=== PATIENT | male | born 1970 | race Caucasian/White ===

== ENCOUNTER 2016-05-11 17:32 | Emergency (ER) | payer SELFPAY ==
[~2016-05-11] VITALS: Ht 182.9 cm; Wt 95.0 kg
[2016-05-11 17:34] VITALS: BP 136/66; PULSE 89; RESP 17; TEMP 98.2; O2SAT 96
[2016-05-12] MEDS ORDERED: METO50TA PO (02:35)
[2016-05-12] MEDS ORDERED: LORA-475 PO (02:35)
[2016-05-12] MEDS ORDERED: LISI10TA3 PO (02:35)
[2016-05-12] MEDS ORDERED: SODIUM CHLOR 0.9% 1000 ML INJ 1,000 ML IV SCH (02:39)
[2016-05-12] MEDS ORDERED: ONDANSETRON HCL 4 MG/2 ML VIAL IVP ONE (02:45)
[2016-05-12] MEDS ORDERED: MORPHINE SULFATE 8 MG/ML INJ IV PUSH ONE (02:45)
[2016-05-12] MEDS ORDERED: SODIUM CHLORIDE 0.9% FLUSH 5 ML FLUSH IVF PRN (02:45)
--- NOTE | 2016-05-12 02:59 | PD ---
HPI Chief Complaint: Abdominal Pain Time Seen by Provider: 02:25 Travel History International Travel<30 days: No Contact w/Intl Traveler<30days: No Traveled to known affect area: No History of Present Illness HPI 46-year-old male arrives with abdominal pain and vomiting. Any oral intake which is now limited to water causes him to vomit. He feels a vague pain radiating from his throat into the epigastric abdomen. Duration has been about 10 hours. Onset was gradual. Generalized abdominal pain is constant. He's had no fever or diarrhea. He has been passing gas normally. He's had no unusual/spoiled/contaminated foods. No similar episodes have occurred. No prior abdominopelvic surgery has occurred [facility] Past Medical History Cardiovascular Problems: Yes (HTN) Hypertension: Yes ?: Not Past Surgical History Surgical History: No Previous Surgery Social History Alcohol Use: No Tobacco Use: Yes (pack a day smoker ) Allergies-Medications (Allergen,Severity, Reaction): Coded Allergies: No Known Allergies (Unverified , 05/11/16) Reported Meds & Prescriptions Reported Meds & Active Scripts Active Reported Ativan (Lorazepam) 2 Mg Tab 2 Mg PO DAILY PRN Metoprolol Tartrate 50 Mg Tab 50 Mg PO DAILY Lisinopril 10 Mg Tab 10 Mg PO DAILY Review of Systems Except as stated in HPI: all other systems reviewed are Neg Physical Exam Narrative GENERAL: 46-year-old male well-nourished full develop no acute distress SKIN: Warm and dry. HEAD: Atraumatic. Normocephalic. EYES: Pupils equal and round. No scleral icterus. No injection or drainage. ENT: No nasal bleeding or discharge. Mucous membranes pink and moist. NECK: Trachea midline. No JVD. CARDIOVASCULAR: Regular rate and rhythm. No murmur appreciated. RESPIRATORY: No accessory muscle use. Clear to auscultation. Breath sounds equal bilaterally. GASTROINTESTINAL: Soft. Generalized tenderness to mild palpation. MUSCULOSKELETAL: No obvious deformities. No clubbing. No cyanosis. No edema. NEUROLOGICAL: Awake and alert. No obvious cranial nerve deficits. Motor grossly within normal limits. Normal speech. PSYCHIATRIC: Appropriate mood and affect; insight and judgment normal. Data Data Last Documented VS Vital Signs Date Time Temp Pulse Resp B/P Pulse Ox O2 Delivery O2 Flow Rate FiO2 05/11/16 17:34 98.2 89 17 136/66 96 Orders Complete Blood Count With Diff (05/12/16 02:39) Comprehensive Metabolic Panel (05/12/16 02:39) Lipase (05/12/16 02:39) Urinalysis - C+S If Indicated (05/12/16 02:39) Ct Abd/Pel W Iv Contrast(Rout) (05/12/16 02:39) Iv Access Insert/Monitor (05/12/16 02:39) Ecg Monitoring (05/12/16 02:39) Oximetry (05/12/16 02:39) Ondansetron Inj (Zofran Inj) (05/12/16 02:45) Sodium Chlor 0.9% 1000 Ml Inj (Ns 1000 M (05/12/16 02:39) Sodium Chloride 0.9% Flush (Ns Flush) (05/12/16 02:45) Morphine Inj (Morphine Inj) (05/12/16 02:45) Iohexol 350 Inj (Omnipaque 350 Inj) (05/12/16 04:38) Labs Laboratory Tests Test 05/12/16 03:00 White Blood Count 7.1 TH/MM3 Red Blood Count 5.26 MIL/MM3 Hemoglobin 14.7 GM/DL Hematocrit 42.7 % Mean Corpuscular Volume 81.3 FL Mean Corpuscular Hemoglobin 27.9 PG Mean Corpuscular Hemoglobin 34.3 % Concent Red Cell Distribution Width 14.0 % Platelet Count 306 TH/MM3 Mean Platelet Volume 8.4 FL Neutrophils (%) (Auto) 54.4 % Lymphocytes (%) (Auto) 33.5 % Monocytes (%) (Auto) 9.3 % Eosinophils (%) (Auto) 1.6 % Basophils (%) (Auto) 1.2 % Neutrophils # (Auto) 3.9 TH/MM3 Lymphocytes # (Auto) 2.4 TH/MM3 Monocytes # (Auto) 0.7 TH/MM3 Eosinophils # (Auto) 0.1 TH/MM3 Basophils # (Auto) 0.1 TH/MM3 CBC Comment DIFF FINAL Differential Comment Urine Color YELLOW Urine Turbidity CLEAR Urine pH 6.0 Urine Specific Aragon 1.029 Urine Protein NEG mg/dL Urine Glucose (UA) NEG mg/dL Urine Ketones NEG mg/dL Urine Occult Blood NEG Urine Nitrite NEG Urine Bilirubin NEG Urine Urobilinogen LESS THAN 2.0 MG/DL Urine Leukocyte Esterase NEG Urine RBC LESS THAN 1 /hpf Urine Mucus FEW /lpf Microscopic Urinalysis Comment CULT NOT INDICATED Sodium Level 139 MEQ/L Potassium Level 3.9 MEQ/L Chloride Level 106 MEQ/L Carbon Dioxide Level 27.0 MEQ/L Anion Gap 6 MEQ/L Blood Urea Nitrogen 21 MG/DL Creatinine 1.25 MG/DL Estimat Glomerular Filtration 63 ML/MIN Rate Random Glucose 85 MG/DL Calcium Level 8.9 MG/DL Total Bilirubin 0.4 MG/DL Aspartate Amino Transf 60 U/L (AST/SGOT) Alanine Aminotransferase 70 U/L (ALT/SGPT) Alkaline Phosphatase 64 U/L Total Protein 7.6 GM/DL Albumin 3.7 GM/DL Lipase 168 U/L [facility] Medical Decision Making Medical Screen Exam Complete: Yes Emergency Medical Condition: Yes Differential Diagnosis Constipation, Gastritis, Acute Cholecystitis, Biliary Colic, Pancreatitis, XAVIER , Hepatitis, Bowel Obstruction, Cystitis, Mesenteric Ischemia, AAA, Appendicitis , Renal Stone/Hydronephrosis, GERD, perforated viscous Narrative Course CBC & BMP Diagram 05/12/16 03:00 AST 60 LFTs WNL otherwise Lipase normal CT ab/pel: no acute disease The patient is resting comfortably and feels better, is alert and in no distress. The patients results and examination findings were discussed. The repeat examination is unremarkable and benign. The history, exam, diagnostic testing, and current condition do not suggest any significant pathology to warrant further testing, continued ED treatment, admission, or surgical evaluation at this point. The vital signs have been stable. The patient does not have uncontrollable pain, intractable vomiting, or other significant symptoms. The patient's condition is stable and appropriate for discharge. The patient will pursue further outpatient evaluation with a primary care physician or other designated or consulting physician as indicated in the discharge instructions. The patient expressed understanding and was agreeable with this plan. Diagnosis Primary Impression: Nausea & vomiting Qualified Code: R11.2 - Nausea and vomiting, intractability of vomiting not specified, unspecified vomiting type Additional Impression: Abdominal pain Qualified Code: R10.9 - Abdominal pain, unspecified location Referrals: Rangel Villagomez MD 2 days Additional Instructions: You have a choice when it comes to health care, and we are glad that you chose [facility]. Hopefully, we have met your expectations on today's visit. You are welcome to return to [facility] at any time, as we are committed to meeting the health care needs of our community. Med/Other Pt SpecificInfo: No Change to Meds Disposition: 01 DISCHARGE HOME Condition: Seng Piña MD May 12, 2016 02:59
[2016-05-12 03:07] LABS: AUTOMATED NEUTROPHIL # 3.9 TH/MM3 (1.8-7.7); BASOPHIL # 0.1 TH/MM3 (0-0.2); BASOPHIL % 1.2 % (0.0-2.0); EOSINOPHIL # 0.1 TH/MM3 (0-0.4); EOSINOPHIL % 1.6 % (0.0-4.0); HEMATOCRIT 42.7 % (39.0-51.0); HEMO FLAGS DIFF FINAL; LYMPH % 33.5 % (9.0-44.0); LYMPHOCYTE # 2.4 TH/MM3 (1.0-4.8); MEAN CELL VOLUME 81.3 FL (80.0-100.0); MEAN CORPUSCULAR HEMOGLOBIN 27.9 PG (27.0-34.0); MEAN CORPUSCULAR HGB CONC 34.3 % (32.0-36.0); MONO % 9.3 % (0.0-8.0); NEUT % 54.4 % (16.0-70.0); PLATELET COUNT 306 TH/MM3 (150-450); RED BLOOD COUNT 5.26 MIL/MM3 (4.50-5.90); WHITE BLOOD COUNT 7.1 TH/MM3 (4.0-11.0)
[2016-05-12 04:13] LABS: ALT (GPT) 70 U/L (12-78); ANION GAP 6 MEQ/L (5-15); AST (GOT) 60 U/L (15-37); BLOOD UREA NITROGEN 21 MG/DL (7-18); CHLORIDE 106 MEQ/L (98-107); GLOMERULAR FILTRATION RATE 63 ML/MIN (>89); POTASSIUM 3.9 MEQ/L (3.5-5.1); SODIUM (NA) 139 MEQ/L (136-145)
[2016-05-12 04:15] LABS: ALKALINE PHOSPHATASE 64 U/L (45-117); TOTAL BILIRUBIN ADULT 0.4 MG/DL (0.2-1.0)
[2016-05-12 04:16] LABS: BLOOD, URINE NEG (NEG); COMMENT (UR) CULT NOT INDICATED; CULTURE IF INDICATED CULT NOT INDICATED; GLUCOSE,URINE NEG (NEG); KETONE, URINE NEG (NEG); MUCUS URINE FEW /lpf (OCC); NITRITE,URINE NEG (NEG); URINE COLOR YELLOW (YELLW/STRAW)
[2016-05-12] MEDS ORDERED: IOHEXOL 350 MG/ML 10 ML VIAL (for RAD DIAG) IV ONE (04:38)
--- NOTE | 2016-05-12 05:03 | RADRPT ---
EXAM DATE/TIME: 05/12/2016 04:35 [place] COMPARISON: No previous studies available for comparison. INDICATIONS : Nausea and vomiting today. IV CONTRAST: 100 cc Omnipaque 350 (iohexol) IV ORAL CONTRAST: No oral contrast ingested. RADIATION DOSE: 13.54 CTDIvol (mGy) MEDICAL HISTORY : None SURGICAL HISTORY : None. ENCOUNTER: Initial ACUITY: 1 day PAIN SCALE: 1/10 LOCATION: abdomen TECHNIQUE: Volumetric scanning of the abdomen and pelvis was performed. Using automated exposure control and ad justment of the mA and/or kV according to patient size, radiation dose was kept as low as reasonably achievable to obtain optimal diagnostic quality images. FINDINGS: LOWER LUNGS: The visualized lower lungs are clear. LIVER: Homogeneous density without lesion. There is no dilation of the biliary tree. No calcified gallston es. SPLEEN: Normal size without lesion. PANCREAS: Within normal limits. KIDNEYS: Normal in size and shape. There is no mass, stone or hydronephrosis. ADRENAL GLANDS: Within normal limits. VASCULAR: There is no aortic aneurysm. BOWEL/MESENTERY: The stomach, small bowel, and colon demonstrate no acute abnormality. There is no free intraperitone al air or fluid. ABDOMINAL WALL: Within normal limits. RETROPERITONEUM: There is no lymphadenopathy. BLADDER: No wall thickening or mass. REPRODUCTIVE: Within normal limits. INGUINAL: There is no lymphadenopathy or hernia. MUSCULOSKELETAL: Within normal limits for patient age. CONCLUSION: Negative CT abdomen/pelvis with contrast. Adarsh Small MD on May 12, 2016 at 5:00 Board Certified Radiologist. This report was verified electronically.
[2016-05-12] MEDS ORDERED: ZOFR4TAB3 SL (05:20)
[2016-05-12] MEDS ORDERED: LIDOCAINE VISCOUS 2% SOLN 15 ML UDC PO ONE (05:45)
[2016-05-12] MEDS ORDERED: ALUMINUM/MAGNESIUM/SIMETH 30 ML CUP PO ONE (05:45)
== END 2016-05-12 06:14 | disposition home or self-care (01) ==
LOC: NEPC 17:32
DX: R11.2 Nausea with vomiting, unspecified (principal); R10.84 Generalized abdominal pain
CPT/HCPCS: 74177; 80053; 81001; 83690; 85025; 96374; 96375; 99284; J2270; J2405; J7030; Q9967

== ENCOUNTER 2016-05-14 18:20 | Emergency (ER) | payer SELFPAY ==
[~2016-05-14 18:20] MED LIST: LISI10TA3 PO; LORA-475 PO; METO50TA PO; ZOFR4TAB3 SL
[2016-05-14 19:00] VITALS: BP 139/85; PULSE 90; RESP 16; TEMP 97.4; O2SAT 100
[2016-05-14 20:36] LABS: AUTOMATED NEUTROPHIL # 1.7 TH/MM3 (1.8-7.7); BASOPHIL # 0.1 TH/MM3 (0-0.2); BASOPHIL % 1.5 % (0.0-2.0); EOSINOPHIL # 0.1 TH/MM3 (0-0.4); HEMATOCRIT 44.7 % (39.0-51.0); HEMO FLAGS AUTO DIFF; LYMPH % 63.4 % (9.0-44.0); MEAN CELL VOLUME 81.8 FL (80.0-100.0); MEAN CORPUSCULAR HEMOGLOBIN 27.4 PG (27.0-34.0); MEAN CORPUSCULAR HGB CONC 33.5 % (32.0-36.0); MONO % 5.2 % (0.0-8.0); NEUT % 27.9 % (16.0-70.0); PLATELET COUNT 325 TH/MM3 (150-450); RED BLOOD COUNT 5.46 MIL/MM3 (4.50-5.90); RED CELL DISTRIBUTION WIDTH 14.1 % (11.6-17.2); WHITE BLOOD COUNT 6.2 TH/MM3 (4.0-11.0)
--- NOTE | 2016-05-14 20:57 | PD ---
HPI Chief Complaint: Psychiatric Symptoms Time Seen by Provider: 20:51 Travel History International Travel<30 days: No Contact w/Intl Traveler<30days: No Traveled to known affect area: No History of Present Illness HPI Patient is a 46-year-old male with a history of hypertension and depression and anxiety presenting on a Amado act. Per the report the [facility] he made homicidal statements. When police arrived he told them he wanted to use a gun to kill himself if he had one. Patient admits to making statements and states he has been suicidal for 1 day. He denies any attempts. He has been drinking alcohol today and does drink most days. He is to tell me how much he drank. He endorses tobacco use but denies illicit drug use. He denies hallucinations and homicidality. He is on Prozac and Ativan depression and anxiety. He denies any medical complaints at this time. PFS Past Medical History Cardiovascular Problems: Yes (HTN) Hypertension: Yes Social History Alcohol Use: No Tobacco Use: Yes (pack a day smoker ) Allergies-Medications (Allergen,Severity, Reaction): Coded Allergies: No Known Allergies (Unverified , 05/14/16) Reported Meds & Prescriptions Reported Meds & Active Scripts Active Zofran Odt (Ondansetron Odt) 4 Mg Tab 4 Mg SL Q8HR PRN Reported Ativan (Lorazepam) 2 Mg Tab 2 Mg PO DAILY PRN Metoprolol Tartrate 50 Mg Tab 50 Mg PO DAILY Lisinopril 10 Mg Tab 10 Mg PO DAILY Review of Systems ROS Limitations: Intoxication, Uncooperative General / Constitutional: No: Fever Cardiovascular: No: Chest Pain or Discomfort Respiratory: No: Shortness of Breath Gastrointestinal: No: Abdominal Pain Neurologic: No: Weakness, Focal Abnormalities Psychiatric: Positive: Anxiety, Depression, Suicidal Ideations, Substance Abuse (alcohol), No: Homicidal Ideation Physical Exam Narrative GENERAL: Well-developed and well-nourished adult male in no acute distress. Smells faintly of alcohol, not obviously intoxicated. SKIN: Warm and dry. Good turgor without tenting. HEAD: Normocephalic and atraumatic. EYES: PERRL bilaterally, 5mm. EOMI bilaterally. No injection or icterus present. No proptosis. Lids without edema or erythema. ENT: Buccal mucosa pink and moist. Oropharynx free of erythema, tonsillar hypertrophy, masses, swelling, asymmetry and exudates. Uvula midline and airway patent. NECK: Supple, no meningeal signs. Trachea midline, no JVD. No cervical or facial lymphadenopathy. CARDIOVASCULAR: Regular rate and rhythm without murmurs, rubs, clicks or gallops. Radial and posterior tibial pulses 2+ bilaterally. No pedal edema. RESPIRATORY: Clear to auscultation bilaterally with symmetrical rise and fall, no distress or use of accessory muscles. MUSCULOSKELETAL: No gait disturbances. Patient freely moving all four extremities spontaneously. Extremities without clubbing, cyanosis, or edema. No obvious deformities. NEUROLOGIC: CN II-XII grossly intact. Awake and alert. Motor grossly within normal limits. Normal speech. PSYCHIATRIC: Anxious, suicidal. Uncooperative. Frequent comments about grabbing the security guards firearm to harm himself. Data Data Last Documented VS Vital Signs Date Time Temp Pulse Resp B/P Pulse Ox O2 Delivery O2 Flow Rate FiO2 05/14/16 19:00 97.4 90 16 139/85 100 Orders Complete Blood Count With Diff (05/14/16 20:03) Basic Metabolic Panel (Bmp) (05/14/16 20:03) Drug Screen, Random Urine (05/14/16 20:03) Alcohol (Ethanol) (05/14/16 20:03) Salicylates (Aspirin) (05/14/16 20:03) Tylenol (Acetaminophen) (05/14/16 20:03) Psych Screen (05/14/16 20:03) Labs Laboratory Tests Test 05/14/16 20:15 White Blood Count 6.2 TH/MM3 Red Blood Count 5.46 MIL/MM3 Hemoglobin 15.0 GM/DL Hematocrit 44.7 % Mean Corpuscular Volume 81.8 FL Mean Corpuscular Hemoglobin 27.4 PG Mean Corpuscular Hemoglobin 33.5 % Concent Red Cell Distribution Width 14.1 % Platelet Count 325 TH/MM3 Mean Platelet Volume 7.5 FL Neutrophils (%) (Auto) 27.9 % Lymphocytes (%) (Auto) 63.4 % Monocytes (%) (Auto) 5.2 % Eosinophils (%) (Auto) 2.0 % Basophils (%) (Auto) 1.5 % Neutrophils # (Auto) 1.7 TH/MM3 Lymphocytes # (Auto) 4.0 TH/MM3 Monocytes # (Auto) 0.3 TH/MM3 Eosinophils # (Auto) 0.1 TH/MM3 Basophils # (Auto) 0.1 TH/MM3 CBC Comment AUTO DIFF Differential Comment AUTO DIFF CONFIRMED Platelet Estimate NORMAL Platelet Morphology Comment NORMAL Red Cell Morphology Comment NORMAL Sodium Level 141 MEQ/L Potassium Level 3.8 MEQ/L Chloride Level 105 MEQ/L Carbon Dioxide Level 25.2 MEQ/L Anion Gap 11 MEQ/L Blood Urea Nitrogen 7 MG/DL Creatinine 1.16 MG/DL Estimat Glomerular Filtration 68 ML/MIN Rate Random Glucose 110 MG/DL Calcium Level 8.2 MG/DL Salicylates Level 3.4 MG/DL Acetaminophen Level LESS THAN 2.0 MCG/ML Ethyl Alcohol Level 297 MG/DL [facility] Medical Decision Making Medical Screen Exam Complete: Yes Emergency Medical Condition: Yes Differential Diagnosis SI versus depression versus anxiety versus bipolar disorder versus schizophrenia versus substance abuse versus mood disorder versus personality disorder versus adjustment disorder Narrative Course Patient's 46-year-old male with a history of hypertension, depression and anxiety brought in on a Amado act for suicidal comments. He admits that he has been thinking about harming himself and states if he had a gun he would shoot himself. He denies hallucinations and homicidality. He denies any acute medical problems. Blood pressure is under good control. He smells of alcohol and admits to drinking today. Denies drug use. Exam is unremarkable. Ordered psych screening labs including Tylenol and salicylates. CBC unremarkable. Metabolic panel shows creatinine 1.16, glucose 110, bicarbonate 25.2 and I gap 11, calcium 8.2. Tylenol level less than 2. Salicylates 3.4. Ethanol 297. Patient is medically cleared to proceed with psych evaluation. Diagnosis Primary Impression: Suicidal ideation Additional Impression: Alcohol intoxication Qualified Code: F10.120 - Alcohol intoxication, uncomplicated Condition: Stable Anders Jones III May 14, 2016 20:57
[2016-05-14 20:58] LABS: ANION GAP 11 MEQ/L (5-15); BICARBONATE 25.2 MEQ/L (21.0-32.0); BLOOD UREA NITROGEN 7 MG/DL (7-18); CHLORIDE 105 MEQ/L (98-107); GLOMERULAR FILTRATION RATE 68 ML/MIN (>89); POTASSIUM 3.8 MEQ/L (3.5-5.1); SODIUM (NA) 141 MEQ/L (136-145)
[2016-05-14 21:00] LABS: ACETAMINOPHEN LESS THAN 2.0 MCG/ML (10.0-30.0)
[2016-05-14 21:36] LABS: PLATELET ESTIMATE SMEAR NORMAL (NORMAL); PLATELET MORPHOLOGY NORMAL (NORMAL); SCAN/DIFF AUTO DIFF CONFIRMED
--- NOTE | 2016-05-14 22:01 | PD ---
Physical Exam Date Seen by Provider: May 14, 2016 Time Seen by Provider: 22:00 Narrative The patient is a 46-year-old male who was initially evaluated by the mid-level provider. Please refer to the initial history, physical, diagnostic evaluation, and treatment modality plan. Data Data Last Documented VS Vital Signs Date Time Temp Pulse Resp B/P Pulse Ox O2 Delivery O2 Flow Rate FiO2 05/14/16 19:00 97.4 90 16 139/85 100 Orders Complete Blood Count With Diff (05/14/16 20:03) Basic Metabolic Panel (Bmp) (05/14/16 20:03) Drug Screen, Random Urine (05/14/16 20:03) Alcohol (Ethanol) (05/14/16 20:03) Salicylates (Aspirin) (05/14/16 20:03) Tylenol (Acetaminophen) (05/14/16 20:03) Psych Screen (05/14/16 20:03) Labs Laboratory Tests Test 05/14/16 20:15 White Blood Count 6.2 TH/MM3 Red Blood Count 5.46 MIL/MM3 Hemoglobin 15.0 GM/DL Hematocrit 44.7 % Mean Corpuscular Volume 81.8 FL Mean Corpuscular Hemoglobin 27.4 PG Mean Corpuscular Hemoglobin 33.5 % Concent Red Cell Distribution Width 14.1 % Platelet Count 325 TH/MM3 Mean Platelet Volume 7.5 FL Neutrophils (%) (Auto) 27.9 % Lymphocytes (%) (Auto) 63.4 % Monocytes (%) (Auto) 5.2 % Eosinophils (%) (Auto) 2.0 % Basophils (%) (Auto) 1.5 % Neutrophils # (Auto) 1.7 TH/MM3 Lymphocytes # (Auto) 4.0 TH/MM3 Monocytes # (Auto) 0.3 TH/MM3 Eosinophils # (Auto) 0.1 TH/MM3 Basophils # (Auto) 0.1 TH/MM3 CBC Comment AUTO DIFF Differential Comment AUTO DIFF CONFIRMED Platelet Estimate NORMAL Platelet Morphology Comment NORMAL Red Cell Morphology Comment NORMAL Sodium Level 141 MEQ/L Potassium Level 3.8 MEQ/L Chloride Level 105 MEQ/L Carbon Dioxide Level 25.2 MEQ/L Anion Gap 11 MEQ/L Blood Urea Nitrogen 7 MG/DL Creatinine 1.16 MG/DL Estimat Glomerular Filtration 68 ML/MIN Rate Random Glucose 110 MG/DL Calcium Level 8.2 MG/DL Salicylates Level 3.4 MG/DL Acetaminophen Level LESS THAN 2.0 MCG/ML Ethyl Alcohol Level 297 MG/DL [facility] Medical Record Reviewed: Yes Supervised Visit with SANA: Yes Interpretation(s) Laboratory Tests Test 05/14/16 20:15 White Blood Count 6.2 TH/MM3 Red Blood Count 5.46 MIL/MM3 Hemoglobin 15.0 GM/DL Hematocrit 44.7 % Mean Corpuscular Volume 81.8 FL Mean Corpuscular Hemoglobin 27.4 PG Mean Corpuscular Hemoglobin 33.5 % Concent Red Cell Distribution Width 14.1 % Platelet Count 325 TH/MM3 Mean Platelet Volume 7.5 FL Neutrophils (%) (Auto) 27.9 % Lymphocytes (%) (Auto) 63.4 % Monocytes (%) (Auto) 5.2 % Eosinophils (%) (Auto) 2.0 % Basophils (%) (Auto) 1.5 % Neutrophils # (Auto) 1.7 TH/MM3 Lymphocytes # (Auto) 4.0 TH/MM3 Monocytes # (Auto) 0.3 TH/MM3 Eosinophils # (Auto) 0.1 TH/MM3 Basophils # (Auto) 0.1 TH/MM3 CBC Comment AUTO DIFF Differential Comment AUTO DIFF CONFIRMED Platelet Estimate NORMAL Platelet Morphology Comment NORMAL Red Cell Morphology Comment NORMAL Sodium Level 141 MEQ/L Potassium Level 3.8 MEQ/L Chloride Level 105 MEQ/L Carbon Dioxide Level 25.2 MEQ/L Anion Gap 11 MEQ/L Blood Urea Nitrogen 7 MG/DL Creatinine 1.16 MG/DL Estimat Glomerular Filtration 68 ML/MIN Rate Random Glucose 110 MG/DL Calcium Level 8.2 MG/DL Salicylates Level 3.4 MG/DL Acetaminophen Level LESS THAN 2.0 MCG/ML Ethyl Alcohol Level 297 MG/DL Differential Diagnosis Differential diagnosis includes substance induced mood disorder, depressive disorder NOS, mood disorder NOS, bipolar affective disorder, schizoaffective disorder, Amado act, suicidal ideation. Narrative Course I, Dr. Laughlin, have reviewed the advance practice practitioner's documentation and am in agreement, met with the patient face to face, made the diagnosis, and the medical decision making was done by me. *My assessment and Findings: The patient was initially evaluate by the mid- level provider, please refer to the initial history, physical, diagnostic evaluation, treatment modality plan. The patient's labs are unremarkable except for alcohol 297. Patient is medically clear to be evaluated by psychiatry. Disposition as per psych. Condition: Stable Roberto Laughlin MD May 14, 2016 22:01
[2016-05-14 22:37] LABS: AMPHETAMINE, URINE NEG (NEG); BARBITURATES, URINE NEG (NEG); COCAINE, URINE POS (NEG)
[2016-05-15] VITALS: BP 154/81; PULSE 73; RESP 18; O2SAT 99
[2016-05-15 02:30] VITALS: BP 157/75; PULSE 100; RESP 18; O2SAT 97
[2016-05-15 06:00] VITALS: BP 160/110; PULSE 92; RESP 18; O2SAT 96
[2016-05-15 07:34] VITALS: BP 163/115; PULSE 90; RESP 18; O2SAT 96
[2016-05-15] MEDS ORDERED: LISINOPRIL 10 MG TAB PO ONE (07:45)
[2016-05-15] MEDS ORDERED: METOPROLOL TARTRATE 50 MG TAB PO ONE (07:45)
[2016-05-15 09:30] VITALS: BP 167/105; PULSE 63; RESP 18
--- NOTE | 2016-05-15 10:35 | PD.CONS ---
Provisional Diagnosis Admission Date [place] I. Alcohol-induced mood disorder, cocaine and alcohol use disorder [place] II. Deferred [place] III. Hypertension [place] IV. Unemployed, alcohol and cocaine use disorder [place] V. 55 History of Present Illness Service Psychiatry Consult Requested By Primary Care Physician Non-Staff HPI The patient is a 46-year-old man with psychiatric history of bipolar disorder, 2 previous hospitalizations, he was just discharged from [facility], alcohol and cocaine use disorder, 1 previous suicide attempts, a history medical of hypertension presenting on a Amado act. As per ER notes : "Per the report the patient is staying at the [facility] he made homicidal statements. When police arrived he told them he wanted to use a gun to kill himself if he had one. Patient admits to making statements and states he has been suicidal for 1 day. He denies any attempts. He has been drinking alcohol today and does drink most days." On psychiatric evaluation today patient was found calm and cooperative, he says that he is motivated to go back to [email or web address] to be detoxed of alcohol. He says that he doesn't have any mood problems at this moment, he was very drunk yesterday when he made a suicidal statement, but he was not really suicidal "I didn't know what he was doing, I was so drunk". Patient says that he was on [employer] act for 4 days last week on to he asked to leave AMA. He states "that was a mistake I was not ready, I just went out to drink alcohol again, I went to go back". At this moment the patient denies suicidal ideation, he denies visual and auditory hallucinations. Patient is oriented 3. He reports daily use of alcohol, about 1 L on vodka, also uses crack cocaine everyday. At this moment he reports sweating and anxiety, but no shakiness, palpitations, nausea or vomiting reported. Review of Systems Constitutional: COMPLAINS OF: Fatigue Endocrine: DENIES: Heat/cold intolerance, Polydipsia, Polyuria, Polyphagia Eyes: DENIES: Blurred vision, Diplopia, Eye inflammation, Eye pain, Vision loss , Photosensitivity, Double Vision Ears, nose, mouth, throat: DENIES: Tinnitus, Hearing loss, Vertigo, Nasal discharge, Oral lesions, Throat pain, Hoarseness, Ear Pain, Running Nose, Epistaxis, Sinus Pain, Toothache, Odynophagia Respiratory: DENIES: Apneas, Cough, Snoring, Wheezing, Hemoptysis, Sputum production, Shortness of breath Cardiovascular: DENIES: Chest pain, Palpitations, Syncope, Dyspnea on Exertion , PND, Lower Extremity Edema, Orthopnea, Claudication Gastrointestinal: DENIES: Abdominal pain, Black stools, Bloody stools, Constipation, Diarrhea, Nausea, Vomiting, Difficulty Swallowing, Anorexia Musculoskeletal: DENIES: Joint pain, Muscle aches, Stiffness, Joint Swelling, Back pain, Neck pain Integumentary: DENIES: Abnormal pigmentation, Nail changes, Pruritus, Rash Hematologic/lymphatic: DENIES: Bruising, Lymphadenopathy Immunologic/allergic: DENIES: Eczema, Urticaria Neurologic: DENIES: Abnormal gait, Headache, Localized weakness, Paresthesias, Seizures, Speech Problems, Tremor, Poor Balance Psychiatric: DENIES: Anxiety, Confusion, Mood changes, Depression, Hallucinations, Agitation, Suicidal Ideation, Homicidal Ideation, Delusions Past Family Social History Coded Allergies: No Known Allergies (Unverified , 05/14/16) Active Scripts Ondansetron Odt (Zofran Odt)4 Mg Tab4 Mg SL Q8HR PRN (Nausea/Vomiting) #10 TAB Ref 0 Prov:Seng Rasmussen MD 05/12/16 Reported Medications Lorazepam (Ativan)2 Mg Tab2 Mg PO DAILY PRN (ANXIETY AND/OR AGITATION) Ref 0 05/12/16 Metoprolol Tartrate 50 Mg Tab50 Mg PO DAILY #30 TAB Ref 0 05/12/16 Lisinopril 10 Mg Tab10 Mg PO DAILY #30 TAB Ref 0 05/12/16 Family History He denies Social History Patient was born and raised in [place], he has been living in [place] for 3 months, he mostly has been living in [facility], he lives alone, is single, unemployed, his highest level of education is high school Patient's Strengths (min. 2) Motivation to go to detox Physical Exam Vital Signs Vital Signs Date Time Temp Pulse Resp B/P Pulse Ox O2 Delivery O2 Flow Rate FiO2 05/15/16 09:30 63 18 167/105 Room Air 05/15/16 07:34 96 05/14/16 19:00 97.4 Mental Status Examination Appearance man, age appearing, skinny, [facility], kind of disheveled, calm and cooperative Speech: Unremarkable Orientation: x3 Memory: Unremarkable Thought Process: Logical Thought Content: Unremarkable Hallucination Type: None Suicidal Ideation: No Previous Suicide Attempts: No Homicidal Ideation: No Previous Homicide Attempts: No Judgement: WNL Affect: Good Mood: Appropriate Motor Activity: Normal gait Assessment & Plan Problem List: (1) Alcohol abuse with alcohol-induced mood disorder Assessment & Plan: At the moment of this evaluation the patient does not meet criteria for inpatient psychiatric admission, patient does not present any evidence of depression, anxiety, genevieve, perceptual disturbances. Patient denies suicidal and homicidal ideation. He denies visual and auditory hallucinations. Recent suicidal statements most probably was secondary to poor judgment and mood liability related with acute alcohol intoxication, but no patient is clinically sober and is highly motivated to be transferred to detox program in the [facility] act. Extensive motivation, psychoeducation and support provided. Amado act will be lifted. ICD Code: F10.14 Assessment & Plan Estimated LOS: Taqueria Morgan MD May 15, 2016 10:34
== END 2016-05-15 10:24 | disposition home or self-care (01) ==
LOC: NEPA 18:20 → NEPJ 05-15 10:24
DX: R45.851 Suicidal ideations (principal); F10.129 Alcohol abuse with intoxication, unspecified; F39 Unspecified mood [affective] disorder; F14.90 Cocaine use, unspecified, uncomplicated; F41.8 Other specified anxiety disorders; I10 Essential (primary) hypertension; F17.210 Nicotine dependence, cigarettes, uncomplicated; Y90.8 Blood alcohol level of 240 mg/100 ml or more
CPT/HCPCS: 80048; 80307; 80320; 80329; 85025; 99284; G0480